=== PATIENT | female | born 1990 | race African-American/Black ===

== ENCOUNTER 2020-08-07 12:00 | Emergency (ER) | payer OTHER, MEDICAID ==
[2020-08-07] MEDS ORDERED: LORAZEPAM INJ 2 MG/1 ML VIAL IV ONE (12:08)
--- NOTE | 2020-08-07 12:09 | ER Document Report ---
ED Medical Screen (RME) - General Chief Complaint: Probable Seizure Stated Complaint: POSSIBLE SEIZURE Time Seen by Provider: 08/07/20 12:07 - HPI Notes: 08/07/20 12:08 29-year-old female with past medical history of paranoid schizophrenia and seizures [facility] with complaints of possible seizure activity this morning. Apparently she is on Dilantin and her levels are low despite adjustment of the medications. Apparently staff at the [facility]iary witnessed seizure activity this morning. She was transported by medics and in our lobby she started to have seizure-like activity again. She was incontinent of urine and drooling. She appeared to be postictal when I was asked to assess her and could not tell me her name or where she was. She was immediately moved to bed 17. I performed a brief medical screening exam on the patient determined that the patient needs further evaluation and management by main side provider. I have placed initial orders to help expedite care.
[2020-08-07] MEDS ORDERED: PHENYTOIN SODIUM INJ/PF 250 MG/5 ML SDV IV ONE (12:27)
[2020-08-07 12:35] LABS: ABSOLUTE EOSINOPHILS # (AUTO) 0.1 10^3/uL (0.0-0.6); ABSOLUTE LYMPHOCYTES (AUTO) 1.7 10^3/uL (0.5-4.7); ABSOLUTE MONOCYTES (AUTO) 0.5 10^3/uL (0.1-1.4); ABSOLUTE NEUT (AUTO) 2.1 10^3/uL (1.7-8.2); EOSINOPHILS % (AUTO) 1.8 % (0-6); HEMATOCRIT 34.9 % (36.0-47.0); HEMOGLOBIN 11.9 g/dL (12.0-15.5); LYMPHOCYTES % (AUTO) 39.6 % (13-45); MEAN CORPUSCULAR HEMOGLOBIN 29.5 pg (27.0-33.4); MEAN CORPUSCULAR HGB CONC 34.1 g/dL (32.0-36.0); MEAN CORPUSCULAR VOLUME 86 fl (80-97); MONOCYTES % (AUTO) 10.4 % (3-13); PLATELET COUNT 163 10^3/uL (150-450); RED BLOOD COUNT 4.04 10^6/uL (3.72-5.28); RED CELL DISTRIBUTION WIDTH 16.4 % (11.5-14.0); SEGMENTED NEUTROPHILS % (AUTO) 47.2 % (42-78); TOTAL CELLS COUNTED % (AUTO) 100 %; WHITE BLOOD COUNT 4.4 10^3/uL (4.0-10.5)
[2020-08-07 12:53] LABS: ALBUMIN 4.4 g/dL (3.5-5.0); ALKALINE PHOSPHATASE 83 U/L (38-126); ANION GAP 10 (5-19); ASPARTATE AMINO TRANSFERASE 75 U/L (14-36); BILIRUBIN,DIRECT 0.2 mg/dL (0.0-0.4); BILIRUBIN,TOTAL 0.3 mg/dL (0.2-1.3); BLOOD UREA NITROGEN 7 mg/dL (7-20); CALCIUM 9.7 mg/dL (8.4-10.2); CARBON DIOXIDE 24 mmol/L (22-30); CHLORIDE 104 mmol/L (98-107); GLUCOSE 89 mg/dL (75-110); POTASSIUM 4.4 mmol/L (3.6-5.0); TOTAL PROTEIN 7.3 g/dL (6.3-8.2)
[2020-08-07 13:44] LABS: APPEARANCE,URINE SLIGHTLY-CLOUDY; BILIRUBIN,URINE NEGATIVE (NEGATIVE); COLOR,URINE YELLOW; GLUCOSE, URINE NEGATIVE (NEGATIVE); KETONES,URINE NEGATIVE (NEGATIVE); PROTEIN,URINE NEGATIVE (NEGATIVE); URINE SPECIFIC GRAVITY 1.005; UROBILINOGEN,URINE NEGATIVE mg/dL (<2.0)
[2020-08-07 13:59] LABS: URINE AMPHETAMINES SCREEN NEGATIVE; URINE BARBITURATES SCREEN NEGATIVE; URINE BENZODIAZEPINES SCREEN NEGATIVE; URINE COCAINE SCREEN NEGATIVE; URINE MARIJUANA (THC) SCREEN NEGATIVE; URINE METHADONE SCREEN NEGATIVE; URINE PHENCYCLIDINE SCREEN NEGATIVE
[2020-08-07 14:04] LABS: T.VAGINALIS (WET MOUNT) TRICHOMONAS SEEN; WBCS (WET MOUNT) 3+ WBCS SEEN; YEAST (WET MOUNT) NO YEAST SEEN
[2020-08-07 14:05] LABS: BACTERIA (WET MOUNT) 4+ BACTERIA SEEN; EPITHELIALS (WET MOUNT) 3+ EPITHELIALS SEEN; RBCS (WET MOUNT) NO RBCS SEEN
--- NOTE | 2020-08-07 14:45 | RADIOLOGY REPORT (SQ) ---
EXAM DESCRIPTION: CT HEAD WITHOUT IMAGES COMPLETED DATE/TIME: 08/07/2020 2:30 pm REASON FOR STUDY: seizure COMPARISON: None. TECHNIQUE: Axial images acquired through the brain without intravenous contrast. Images reviewed wi th bone, brain and subdural windows. Additional sagittal and coronal reconstructions were generated. Images stored on PACS. All CT scanners at this facility use dose modulation, iterative reconstruction, and/or weight based d osing when appropriate to reduce radiation dose to as low as reasonably achievable (ALARA). [facility]: Dose Right [facility]: CareDose [facility]: Dose Right [facility]: Teradose 4D [facility]: Endocyte RADIATION DOSE: CT Rad equipment meets quality standard of care and radiation dose reduction techniq ues were employed. CTDIvol: 53.2 mGy. DLP: 1070 mGy-cm. mGy. LIMITATIONS: None. FINDINGS: VENTRICLES: Normal size and contour. CEREBRUM: No masses. No hemorrhage. No midline shift. No evidence for acute infarction. Normal gra y/white matter differentiation. No areas of low density in the white matter. CEREBELLUM: No masses. No hemorrhage. No alteration of density. No evidence for acute infarction. EXTRAAXIAL SPACES: No fluid collections. No masses. ORBITS AND GLOBE: No intra- or extraconal masses. Normal contour of globe without masses. CALVARIUM: No fracture. PARANASAL SINUSES: No fluid or mucosal thickening. SOFT TISSUES: No mass or hematoma. OTHER: Fairly extensive calcification along the tentorium in the falx is noted. This can be seen in metabolic disorders or post infectious or inflammatory processes. This can also be a normal variant. IMPRESSION: No acute intracranial event. EVIDENCE OF ACUTE STROKE: NO. COMMENT: Quality ID # [id number]: Final reports with documentation of one or more dose reduction techniques (e.g., Automated exposure control, adjustment of the mA and/or kV according to patient size, use of iterative reconstruction technique) TECHNICAL DOCUMENTATION: JOB ID: [id number] 2010 [employer]- All Rights Reserved Reading location - IP/workstation name: [email or web address]
[2020-08-07] MEDS ORDERED: METRONIDAZOLE 500 MG TABLET PO ONE (15:19)
[2020-08-07] MEDS ORDERED: CEFTRIAXONE INJ 250 MG VIAL IV ONE (15:19)
--- NOTE | 2020-08-07 15:25 | ER Document Report ---
ED General - General Chief Complaint: Seizure Stated Complaint: POSSIBLE SEIZURE Time Seen by Provider: 08/07/20 12:07 Primary Care Provider: KRISTA COOK [Primary Care Provider] - Follow up as needed Mode of Arrival: Ambulatory Information source: Patient - HPI Notes: Patient is [facility] custody [facility] prison. She was brought in by police secondary to several tonic-clonic seizures today. She does have known seizure disorder and is currently taking Dilantin. Her Dilantin level apparently returned yesterday slightly low. No known injury and today's tonic-clonic seizures. Patient states that she feels fine now. She denies any pain or probl ems. She does state that she feels she has odorous vaginal discharge and is concerned she may have a sickly she has been disease. No known recent trauma. No known recent fevers chills or sweats. No known cough cold or congestion. She denies any painful urination or trouble with bowel movements. Her symptoms today were intermittent. The tonic-clonic did radiate throughout her body. They apparently are made worse when she is not adequately therapeutic on her meds and are better when she is. - Related Data Allergies/Adverse Reactions: onion Allergy (Verified 08/07/20 12:36) Home Medications: Dilantin, haldol, prozac Past Medical History - General Information source: Patient - Social History Smoking Status: Never Smoker Frequency of alcohol use: None Drug Abuse: None Family History: Reviewed & Not Pertinent Neurological Medical History: Reports: Hx Seizures Review of Systems - Review of Systems Constitutional: denies: Chills, Fever Cardiovascular: denies: Chest pain, Palpitations Respiratory: denies: Cough, Short of breath -: Yes All other systems reviewed and negative Physical Exam - Vital signs Vitals: Resp 19 08/07/20 12:10 Interpretation: Normal - General General appearance: Appears well, Alert - HEENT Head: Normocephalic, Atraumatic Eyes: Normal Pupils: PERRL - Respiratory Respiratory status: No respiratory distress Chest status: Nontender Breath sounds: Normal Chest palpation: Normal - Cardiovascular Rhythm: Regular Heart sounds: Normal auscultation Murmur: No - Abdominal Inspection: Normal Distension: No distension Bowel sounds: Normal Tenderness: Nontender Organomegaly: No organomegaly - Back Back: Normal, Nontender - Extremities General upper extremity: Normal inspection, Nontender, Normal color, Normal ROM, Normal temperature General lower extremity: Normal inspection, Nontender, Normal color, Normal ROM, Normal temperature, Normal weight bearing. No: Zbigniew's sign - Neurological Neuro grossly intact: Yes Cognition: Normal Orientation: AAOx4 [place] Coma Scale Eye Opening: Spontaneous [place] Coma Scale Verbal: Oriented [place] Coma Scale Motor: Obeys Commands [place] Coma Scale Total: 15 Speech: Normal Motor strength normal: LUE, RUE, LLE, RLE Sensory: Normal - Psychological Associated symptoms: Normal affect, Normal mood - Skin Skin Temperature: Warm Skin Moisture: Dry Skin Color: Normal Course - Re-evaluation Re-evalutation: 08/07/20 15:22 Patient presents with seizure while in prison. Her Dilantin was slightly low. Therefore I have given the patient IV Dilantin. I think she is now stable to be discharged. I recommend that she continues on her current dose of Dilantin now that she appears to be therapeutic. She has had no more seizure activity here. I am going to recommend also that she follow-up with neurology as soon as possible to see if possibly a second agent would be necessary or if she needs to switch agents. In addition she does have an infected urine and complains of vaginal odor. She does have trichomonas on swab. Therefore I am going to treat the patient for STDs. - Vital Signs Vital signs: Temp Pulse Resp BP Pulse Ox 14 101/68 100 08/07/20 12:16 08/07/20 12:16 08/07/20 12:16 - Laboratory Result Diagrams: 08/07/20 12:21 08/07/20 12:21 Laboratory results interpreted by me: 08/07/20 08/07/20 08/07/20 12:21 12:21 13:25 Hgb 11.9 L Hct 34.9 L RDW 16.4 H Creatinine 0.51 L AST 75 H ALT 137 H Urine Blood SMALL H Leukocyte Esterase Rfl LARGE H - Diagnostic Test Radiology reviewed: Image reviewed, Reports reviewed Discharge - Discharge Clinical Impression: Seizure, Trichomonal vaginitis UTI (urinary tract infection) Qualifiers: Urinary tract infection type: acute cystitis Hematuria presence: without hematuria Qualified Code(s): N30.00 - Acute cystitis without hematuria Condition: Stable Disposition: HOME, SELF-CARE Instructions: Urinary Tract Infection ([facility]), Trichomonas Infection ([facility]) Additional Instructions: Please take all of your antibiotic. Please have your sexual partner checked for sexual transmitted diseases. Do not have intercourse until you have completed all of your antibiotic. Please take your Dilantin every day as scheduled. Please follow-up with your neurologist as soon as possible to assess whether or not you need to adjust your seizure medication. Prescriptions: Doxycycline Hyclate [Vibramycin 100 mg Tablet] 100 mg PO BID 10 Days #20 tablet
[2020-08-07 15:35] LABS: CHLAM PCR NOT DETECTED (NOT DETECT)
[2020-08-07 16:27] VITALS: BP 115/77
== END 2020-08-07 16:27 | disposition home or self-care (01) ==
LOC: ER 12:00
DX: G40.909 Epilepsy, unspecified, not intractable, without status epilepticus (principal); A59.01 Trichomonal vulvovaginitis; N30.00 Acute cystitis without hematuria
CPT/HCPCS: 99285; 96375; 96365; 36415; 87210; 80185; 85025; 81025; 80053; 81001; 80307; 87491; 87591; 70450; J2060; J1165; J0696